=== PATIENT | male | born 1975 | race Caucasian/White ===

== ENCOUNTER 2018-06-13 08:02 | Emergency (ER) | payer BC, OTHER ==
[2018-06-13 08:31] VITALS: BP 144/79
--- NOTE | 2018-06-13 08:42 | UC ---
UC General HPI - HPI Summary HPI Summary: c/o fever/chills, headache, nausea and diarrhea that started Wednesday morning. + sweating. No hx IBD. No travel hx or recent antibiotic use. No abdominal pain. - History of Current Complaint Chief Complaint: UCGI Stated Complaint: CHILLS,FEVER,NAUSEA Time Seen by Provider: 06/13/18 08:32 Hx Obtained From: Patient Pain Intensity: 0 Associated Signs & Symptoms: Negative: Abdominal Pain, Vomiting - Allergy/Home Medications Allergies/Adverse Reactions: Allergies Allergy/AdvReac Type Severity Reaction Status Date / Time No Known Allergies Allergy Verified 06/13/18 08:26 Home Medications: Home Medications Nicotine PATCH 14 MG/24 HR* 14 mg TRANSDERM DAILY 06/13/18 [History Confirmed ] PMH/Surg Hx/FS Hx/Imm Hx Previously Healthy: Yes - Surgical History Surgical History: None - Family History Known Family History: Positive: Non-Contributory - Social History Occupation: Employed Full-time Alcohol Use: None Substance Use Type: None Smoking Status (MU): Former Smoker Type: Cigarettes When Did the Patient Quit Smoking/Using Tobacco: Apr 25, 2019 - Immunization History Vaccination Up to Date: Yes Review of Systems All Other Systems Reviewed And Are Negative: Yes Constitutional: Positive: Fever, Chills Skin: Positive: Negative Eyes: Positive: Negative ENT: Positive: Negative Respiratory: Positive: Negative Cardiovascular: Positive: Negative Gastrointestinal: Positive: Diarrhea, Nausea. Negative: Abdominal Pain Genitourinary: Positive: Negative Motor: Positive: Negative Neurovascular: Positive: Negative Musculoskeletal: Positive: Negative Neurological: Positive: Headache Psychological: Positive: Negative Is Patient Immunocompromised?: No Physical Exam Triage Information Reviewed: Yes Appearance: Ill-Appearing - but non toxic Vital Signs: Initial Vital Signs Temp 97.9 F 06/13/18 08:27 Pulse 101 06/13/18 08:27 Resp 16 06/13/18 08:27 BP 144/79 06/13/18 08:27 Pulse Ox 100 06/13/18 08:27 Vital Signs Reviewed: Yes Eyes: Positive: Conjunctiva Clear ENT: Positive: Pharynx normal, TMs normal. Negative: Nasal congestion, Nasal drainage Neck: Positive: Supple, Nontender, No Lymphadenopathy Respiratory: Positive: Lungs clear, Normal breath sounds, No respiratory distress Cardiovascular: Positive: RRR, No Murmur. Negative: Tachycardia Abdomen Description: Positive: Nontender, No Organomegaly, Soft. Negative: Distended, Guarding Bowel Sounds: Positive: Present Musculoskeletal: Positive: ROM Intact Neurological: Positive: Alert Psychological: Positive: Age Appropriate Behavior Skin Exam: Other - Moist and flushed. Diagnostics - Laboratory Diagnostic Studies Completed/Ordered: rapid flu=negative Course/Dx - Course Course Of Treatment: DENIES HX HTN, BP ILLNESS RELATED BUT F/U FOR RECHECK WILL BE ADVISED. - Differential Dx - Multi-Symptom Differential Diagnoses: Other - no travel hx to suggest bacterial or parasite source of diarrhea and no antibiotic use to suggest c-diff colitis. no hx IBD. No acute abdomen. pt states is starting to improve. - Diagnoses Provider Diagnosis: Nausea, Diarrhea, Fever Discharge - Sign-Out/Discharge Documenting (check all that apply): Patient Departure All imaging exams completed and their final reports reviewed: No Studies - Discharge Plan Condition: Stable Disposition: HOME Patient Education Materials: Viral Syndrome (ED) Forms: *Work Release Referrals: Adebayo Riley MD [Primary Care Provider] - 3 Days Additional Instructions: GO TO ER FOR ANY WORSENING - Billing Disposition and Condition Condition: STABLE Disposition: Home
[2018-06-13 08:54] LABS: Influenza A Molecular NEGATIVE (Negative); Influenza B Molecular NEGATIVE (Negative)
== END 2018-06-13 09:16 | disposition home or self-care (01) ==
LOC: UCCORT 08:02
DX: R50.9 Fever, unspecified (principal); R11.0 Nausea; R19.7 Diarrhea, unspecified; R51 Headache; Z87.891 Personal history of nicotine dependence
CPT/HCPCS: 99211; G0463